=== PATIENT | female | born 1950 | race Caucasian/White ===

== ENCOUNTER 2017-09-25 09:19 | Outpatient (CLI) | payer MEDICARE | END 2017-09-25 17:47 | disposition home or self-care (01) | LOC: SMA 09:19 | DX: Z12.31 Encounter for screening mammogram for malignant neoplasm of breast (principal) | CPT/HCPCS: 77067 ==

== ENCOUNTER 2018-10-06 14:58 | Outpatient (CLI) | payer BC | END 2018-10-06 21:03 | disposition home or self-care (01) | LOC: SMA 14:58 | PROVIDERS: ATTEND Family Medicine | DX: Z12.31 Encounter for screening mammogram for malignant neoplasm of breast (principal) | CPT/HCPCS: 77067 ==

== ENCOUNTER 2019-10-20 09:06 | Outpatient (CLI) | payer BC | END 2019-10-20 20:14 | disposition home or self-care (01) | LOC: SMA 09:06 | PROVIDERS: ATTEND Family Medicine | DX: Z12.31 Encounter for screening mammogram for malignant neoplasm of breast (principal) | CPT/HCPCS: 77067 ==